=== PATIENT | female | born 1935 | race Caucasian/White ===

== ENCOUNTER 2020-01-20 12:09 | Outpatient (CLI) | payer MEDICARE, SELFPAY ==
[2020-01-20 12:42] LABS: Basophils % 0.4 %; Eosinophils # 0.3 10^3/uL (0.0-0.8); Hematocrit 44.9 % (37.0-47.0); Hemoglobin 13.4 g/dL (11.5-15.3); Lymphocytes # 1.3 10^3/uL (0.8-4.8); Mean Corpuscular HGB Conc 29.8 g/dL (30.0-36.0); Mean Corpuscular Hemoglobin 27.6 pg (28.0-34.0); Mean Corpuscular Volume 92.4 fL (81-99); Mean Platelet Volume 9.9 fL (7.4-10.4); Monocytes # 0.6 10^3/uL (0.2-0.9); Monocytes % 6.4 %; Neutrophils # 6.7 10^3/uL (1.8-7.7); Neutrophils % 74.8 %; Nucleated Red Blood Cells % 0 %; Platelet Count 302 10^3/cmm (130-400); Red Blood Count 4.86 10^6/uL (4.1-5.3); Red Cell Distribution Width 14.4 % (12.1-15.1); White Blood Count 8.9 10^3/uL (4.0-10.0)
[2020-01-20 13:02] LABS: Alanine Aminotransferase 8 U/L (0-33); Albumin Level 4.3 g/dL (3.5-5.2); Alkaline Phosphatase 123 IU/L (35-105); Anion Gap 11.8 (5-19); Aspartate Amino Transferase 13 U/L (0-32); Blood Urea Nitrogen 20 mg/dL (8-23); Calcium 9.4 mg/dL (8.5-10.5); Carbon Dioxide 30 mmol/L (22-29); Chloride 103 mmol/L (98-107); Globulin 2.9 g/dL (1.3-4.6); Glucose 103 mg/dL (65-115); Osmolality Calculated 289 mOsm/kg (285-295); Potassium 3.8 mmol/L (3.5-5.1); Sodium 141 mmol/L (136-145); Total Bilirubin 0.8 mg/dL (0.15-1.2); Total Protein 7.2 g/dL (6.6-8.7)
--- NOTE | 2020-01-24 13:43 | ONC FU_ITS ---
Dr. Leblanc Patient Follow-Up Note Patient: Brooklynn Veronica Unit #: [id number]: 1935 Dicatated By: Roger Leblanc M.D.Date of Visit:Jan 20, 2020 Onc Med Follow-up/Prog Note Chief Complaint: Anal canal cancer. 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 She had been seen by Dr. Nestor gong because she was having difficulty with her bowel movements. At the time, it felt to her as if there was some blockage. She had not been aware of any bleeding or other associated GI symptoms, but she did have some weight loss, in the range of 7-10 pounds. She was evaluated with colonoscopy on 06/15/2016. It showed a semi-pedunculated polyp versus mass in the rectum, estimated size 7 mm x 10 mm, just distal to the anal verge. Biopsy showed poorly differentiated squamous cell carcinoma. She was seen by Dr. Emiliano Das on 06/29/2016. On his exam he noted a palpable tumor in the right lateral position in the anal canal measuring about a centimeter. It did appear ulcerated, but not fixed. He then referred her here for staging evaluation and possible chemoradiation. PET/CT on 07/15/2016 showed marked increased metabolic activity associated with a mass in the anal canal, consistent with the primary tumor. There was no evidence for local or distant metastasis. She was treated with chemoradiation utilizing the mitomycin-C/5-FU regimen for chemosensitization. She received her day 1 chemotherapy on 07/26/2016. She tolerated it well, and she was able to complete her day 29 treatment on 08/22/2016. She completed radiation on 09/06/2016 to a total dose of 5580 cGy. She had her port removed on 11/04/2016. Anoscopy at that time showed no residual tumor within the anal canal. Restaging PET/CT on 12/30/2016 showed significant decrease in size and hypermetabolism of mass within the anal canal with max SUV 2.6, previously 24.1. No hypermetabolic lymph nodes were seen within the neck, chest, abdomen, or pelvis. There were scattered areas of probable scarring throughout the bilateral lungs, which appear more prominent than on previous examination, many of which had associated mild hypermetabolism. She was then followed on observation/expectant management. She is known to have a prolapsed bladder, and she also has underlying COPD. She has no other medical illnesses. She had smoked 1/2 pack of cigarettes daily for 30 years, but she quit smoking more than 5 years ago. INTERIM HISTORY: Surveillance CT scans of the chest, abdomen, and pelvis on 07/16/2018 showed stable bilateral pulmonary parenchymal nodules compared to prior study from 2013. There was stable appearance of the anal region compared to the PET/CT from December 2016. There was no evidence of disease progression. Repeat CT scans on 07/18/2019 showed clearing of previously noted right lower lobe pleural based density with unchanged medial left lower lobe pulmonary nodule. Tree-in-bud infiltrative changes were also noted to have improved. There was no evidence of metastatic disease in the chest, abdomen, or pelvis. She continued on observation/expectant management. She is seen for a scheduled visit. She has been feeling okay. She says her energy is not the greatest. She is doing light work. ECOG score is 1. She has good appetite, but she has lost weight. She has not had fever. She does have some sweating at night. She has shortness of breath, but her breathing has been pretty good with regular use of her inhalers. She has cough productive of clear sputum. She has not been having chest pain. However, she has occasional episodes of fast heart rate, significant enough that she feels like she is going to pass out. She is having them about once a month. She has no GI/ complaints other than some constipation, which she manages adequately with MiraLAX. She has been having pain in her hip, that is better. She has no other joint or bone pain. She does not complain of headache. She has no focal neurologic symptoms. Medications: Advair Diskus 2 (500-50 mcg/dose) Aerosol Powder, Breath Activated Inhalation daily PRN, Advil 1 (200 mg) Capsule Oral daily PRN, Stool Softener Tablet Oral PRN Allergies: Sulfa Review of Systems: Constitutional - Her energy level is pretty good. She is able to do house work and take care of her horses. Appetite is good. Her weight is down about 8 pounds from her last visit. No fever or chills. She does have some hot flashes and night sweats. ECOG score is 1, ENMT - She has some sinus congestion/drainage. No mouth sores. No sore throat or difficulty swallowing, Hematologic/Lymphatic - No abnormal bruising or bleeding, Respiratory - She has some shortness of breath but she manages it adequately with her inhalers. She has cough productive of clear sputum. No pleuritic pain or hemoptysis, Cardiovascular - No angina pain. No palpitations. She is having episodes of tachycardia, Gastrointestinal - No nausea or vomiting. No heartburn or acid reflux. No diarrhea. She uses Miralax to manage constipation. No blood in the stool or black stools, Genitourinary (F) - No dysuria or hematuria. No urinary frequency. No urgency or incontinence, Musculoskeletal - Her hips hurt occasionally. She has no other joint or bone pain, Integumentary - No skin complications, Neurologic - No headache or dizziness. No numbness/paresthesias or other focal neurologic symptoms, Psychiatric - No anxiety or depression. No insomnia. Vital Signs: Performed on Jan 20, 2020 14:13 Height - 61.50 in Weight - 92.6 lbs (LOW) BSA - 1.37 sq.m BMI - 17.21 (LOW) Temperature - 97.8 F (LOW) Pulse - 113 /min (HIGH) Respiration - 18 /min BP - 116/72 mm(hg) O2 Sat - 94 % (LOW) Pain - 0 Physical Examination: Constitutional - She looks pretty good generally, Eyes - Sclerae nonicteric. Conjunctivae clear, ENMT - No lesions noted in the oral cavity, Hematologic/Lymphatic - No cervical, clavicular, or axillary adenopathy, Respiratory - Lungs are clear with diminished air movement bilaterally, Cardiovascular - Heart rhythm is regular. There is no murmur, gallop, or rub noted, Abdomen - Soft. Liver and spleen are not enlarged. There is no abdominal mass or ascites noted and there is no inguinal adenopathy, Extremities - No edema, Neurologic - No focal neurologic deficits noted. Lab/Imaging: Test performed on Jan 20, 2020 12:20 Sodium 141 mmol/L Potassium 3.8 mmol/L Chloride 103 mmol/L CO2 30 mmol/L Anion Gap 11.8 BUN 20 mg/dL Creatinine 0.9 mg/dL Cr Clearance (Est) 32.8500 mL/min Glucose 103 mg/dL Calcium 9.4 mg/dL Protein, Total 7.2 g/dL Albumin 4.3 g/dL Globulin 2.9 g/dL Bilirubin, Total 0.8 mg/dL ALT (SGPT) 8 U/L AST (SGOT) 13 U/L Alkaline Phosphatase 123 IU/L WBC 8.9 10 3/uL RBC 4.86 10 6/uL HGB 13.4 g/dL HCT 44.9 % MCV 92.4 fL MCH 27.6 pg MCHC 29.8 g/dL RDW 14.4 % Platelet Count 302 10 3/cmm MPV 9.9 fL Neutrophils 6.7 10 3/uL Lymphocytes 1.3 10 3/uL Monocytes 0.6 10 3/uL Eosinophils 0.3 10 3/uL Basophils 0.0 10 3/uL Neutrophil % 74.8 % Lymphocyte % 15.0 % Monocyte % 6.4 % Eosinophil % 3.0 % Basophils % 0.4 % Impression: 1. Patient with squamous cell carcinoma of the anal canal. By clinical evaluation she appeared to have stage I disease (T1, N0, M0). 2. She underwent chemoradiation utilizing mitomycin-C/5-FU for chemosensitization. She tolerated the chemotherapy well. She completed radiation on 09/06/2016 to a total dose of 5500 cGy. She appears to have a very good response by restaging PET/CT and by follow-up anoscopy. 3. She has history of prolapsed bladder. 4. She has significant COPD, which appears to be disproportionate to her smoking history. She has been followed on observation/expectant management following completion of the chemoradiation. Initially she was having problems related to her underlying COPD, but her symptoms did improve with Spiriva. Recently she has been having episodes of tachycardia with associated lightheadedness/near syncope. The cause is uncertain, but thus far they have been very infrequent. She is otherwise been doing well clinically. Thus far there has been no evidence of recurrence of the anal canal cancer. Plan: She remains on observation/expectant management for the anal canal cancer. I will check with cardiac services about the possibility of getting her set up with a 30-day event monitor, if that is still available. She will have further cardiac evaluation as indicated. I will tentatively plan a follow-up visit in 6 months. Signed By: Roger Leblanc M.D. <<Signature on File>>
== END 2020-01-20 12:10 | disposition home or self-care (01) ==
LOC: ONCMED 12:12
PROVIDERS: Family Provider Electrodiagnostic Medicine; PCP Electrodiagnostic Medicine; Visit Provider Internal Medicine Medical Oncology
DX: Z08 Encounter for follow-up examination after completed treatment for malignant neoplasm (principal); Z85.048 Personal history of other malignant neoplasm of rectum, rectosigmoid junction, and anus; J44.9 Chronic obstructive pulmonary disease, unspecified; N81.10 Cystocele, unspecified; R00.0 Tachycardia, unspecified; Z79.51 Long term (current) use of inhaled steroids; Z87.891 Personal history of nicotine dependence; Z92.21 Personal history of antineoplastic chemotherapy; Z92.3 Personal history of irradiation
CPT/HCPCS: 80053; 85025; 99214

== ENCOUNTER 2020-07-27 11:14 | Outpatient (CLI) | payer MEDICARE, SELFPAY ==
[2020-07-27 11:56] LABS: Basophils % 0.6 %; Eosinophils # 0.2 10^3/uL (0.0-0.8); Eosinophils % 3.5 %; Hematocrit 44.7 % (37.0-47.0); Hemoglobin 13.9 g/dL (11.5-15.3); Lymphocytes # 1.1 10^3/uL (0.8-4.8); Lymphocytes % 16.7 %; Mean Corpuscular HGB Conc 31.1 g/dL (30.0-36.0); Mean Corpuscular Hemoglobin 29.6 pg (28.0-34.0); Mean Corpuscular Volume 95.3 fL (81-99); Mean Platelet Volume 10.3 fL (7.4-10.4); Monocytes # 0.4 10^3/uL (0.2-0.9); Monocytes % 6.1 %; Neutrophils # 4.81 10^3/uL (1.8-7.7); Neutrophils % 72.9 %; Nucleated Red Blood Cells % 0 %; Platelet Count 217 10^3/cmm (130-400); Red Blood Count 4.69 10^6/uL (4.1-5.3); Red Cell Distribution Width 13.1 % (12.1-15.1); White Blood Count 6.6 10^3/uL (4.0-10.0)
[2020-07-27 12:30] LABS: Alanine Aminotransferase 8 U/L (0-33); Albumin Level 4.2 g/dL (3.5-5.2); Alkaline Phosphatase 143 IU/L (35-105); Aspartate Amino Transferase 14 U/L (0-32); Blood Urea Nitrogen 22 mg/dL (8-23); Calcium 9.1 mg/dL (8.5-10.5); Carbon Dioxide 26 mmol/L (22-29); Chloride 104 mmol/L (98-107); Glucose 96 mg/dL (65-115); Osmolality Calculated 291 mOsm/kg (285-295); Sodium 139 mmol/L (136-145); Total Bilirubin 0.7 mg/dL (0.15-1.2); Total Protein 7.2 g/dL (6.6-8.7)
--- NOTE | 2020-07-31 06:41 | ONC FU_ITS ---
Dr. Leblanc Patient Follow-Up Note Patient: Brooklynn Veronica Unit #: [id number]: 1935 Dicatated By: Roger Leblanc M.D.Date of Visit:Jul 27, 2020 Onc Med Follow-up/Prog Note Chief Complaint: Anal canal cancer. 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 She had been seen by Dr. Nestor gong because she was having difficulty with her bowel movements. At the time, it felt to her as if there was some blockage. She had not been aware of any bleeding or other associated GI symptoms, but she did have some weight loss, in the range of 7-10 pounds. She was evaluated with colonoscopy on 06/15/2016. It showed a semi-pedunculated polyp versus mass in the rectum, estimated size 7 mm x 10 mm, just distal to the anal verge. Biopsy showed poorly differentiated squamous cell carcinoma. She was seen by Dr. Emiliano Das on 06/29/2016. On his exam he noted a palpable tumor in the right lateral position in the anal canal measuring about a centimeter. It did appear ulcerated, but not fixed. He then referred her here for staging evaluation and possible chemoradiation. PET/CT on 07/15/2016 showed marked increased metabolic activity associated with a mass in the anal canal, consistent with the primary tumor. There was no evidence for local or distant metastasis. She was treated with chemoradiation utilizing the mitomycin-C/5-FU regimen for chemosensitization. She received her day 1 chemotherapy on 07/26/2016. She tolerated it well, and she was able to complete her day 29 treatment on 08/22/2016. She completed radiation on 09/06/2016 to a total dose of 5580 cGy. She had her port removed on 11/04/2016. Anoscopy at that time showed no residual tumor within the anal canal. Restaging PET/CT on 12/30/2016 showed significant decrease in size and hypermetabolism of mass within the anal canal with max SUV 2.6, previously 24.1. No hypermetabolic lymph nodes were seen within the neck, chest, abdomen, or pelvis. There were scattered areas of probable scarring throughout the bilateral lungs, which appear more prominent than on previous examination, many of which had associated mild hypermetabolism. She was then followed on observation/expectant management. She is known to have a prolapsed bladder, and she also has underlying COPD. She has no other medical illnesses. She had smoked 1/2 pack of cigarettes daily for 30 years, but she quit smoking more than 5 years ago. INTERIM HISTORY: Surveillance CT scans of the chest, abdomen, and pelvis on 07/16/2018 showed stable bilateral pulmonary parenchymal nodules compared to prior study from 2013. There was stable appearance of the anal region compared to the PET/CT from December 2016. There was no evidence of disease progression. Repeat CT scans on 07/18/2019 showed clearing of previously noted right lower lobe pleural based density with unchanged medial left lower lobe pulmonary nodule. Tree-in-bud infiltrative changes were also noted to have improved. There was no evidence of metastatic disease in the chest, abdomen, or pelvis. She continued on observation/expectant management. She is seen for a scheduled visit. She has been feeling pretty good generally. Her energy has been slowing down, but she is still able to do light work. Her ECOG score is 1. She has good appetite. Her weight is up about 5 pounds. She has no fever, night sweats, or hot flashes. She has shortness of breath, but her breathing has been okay with her inhalers. She has cough productive of clear sputum. She does not complain of chest pain. She has no GI/ complaints other than constipation, which she manages adequately with Miralax. She has chronic pain in her right hip. She has no other joint or bone pain. She has no focal neurologic symptoms. Medications: Advair Diskus 2 (500-50 mcg/dose) Aerosol Powder, Breath Activated Inhalation daily PRN, Advil 1 (200 mg) Capsule Oral daily PRN, Stool Softener Tablet Oral PRN Allergies: Sulfa Review of Systems: Constitutional - Her energy has been slowing down. She is doing light work. She has good appetite. Her weight is up 5 pounds. She does not have fever, night sweats, or hot flashes. ECOG score is 1, ENMT - No sinus congestion/drainage. No mouth sores. No sore throat or difficulty swallowing, Hematologic/Lymphatic - She has easy bruising, Respiratory - She has shortness of breath, but her breathing has been okay with her inhalers . She has cough productive of clear sputum. No pleuritic pain or hemoptysis, Cardiovascular - No angina pain. No palpitations, Gastrointestinal - No nausea or vomiting. No heartburn or acid reflux. She has constipation. Bowel function has been adequate with Miralax. No blood in the stool or black stools, Genitourinary (F) - No dysuria or hematuria. No urinary frequency. No urgency or incontinence, Musculoskeletal - She has pain in her right hip, which is chronic. No other joint or bone pain, Integumentary - No skin rash, Neurologic - No headache. She occasionally has dizziness. No numbness or tingling. No other focal neurologic symptoms, Psychiatric - No anxiety or depression. No insomnia. Vital Signs: Performed on Jul 27, 2020 12:50 Height - 61.50 in Weight - 97.4 lbs (HIGH) BSA - 1.40 sq.m BMI - 18.11 Temperature - 97.9 F (LOW) Pulse - 95 /min Respiration - 16 /min BP - 100/61 mm(hg) O2 Sat - 95 % (LOW) Pain - 0 Physical Examination: Constitutional - She looks pretty good generally, Eyes - Sclerae nonicteric. Conjunctivae clear, ENMT - No lesions noted in the oral cavity, Hematologic/Lymphatic - No cervical, clavicular, or axillary adenopathy, Respiratory - Lungs are clear with diminished air movement bilaterally, Cardiovascular - Heart rhythm is regular. There is no murmur, gallop, or rub noted, Abdomen - Soft. Liver and spleen are not enlarged. There is no abdominal mass or ascites noted and there is no inguinal adenopathy, Extremities - No edema, Neurologic - No focal neurologic deficits noted. Lab/Imaging: Test performed on Jul 27, 2020 11:30 Sodium 139 mmol/L Potassium 4.0 mmol/L Chloride 104 mmol/L CO2 26 mmol/L Anion Gap 13.0 BUN 22 mg/dL Creatinine 1.2 mg/dL Cr Clearance (Est) 24.2000 mL/min Glucose 96 mg/dL Osmolality - Calculated 291 mOsm/kg Calcium 9.1 mg/dL Protein, Total 7.2 g/dL Albumin 4.2 g/dL Globulin 3.0 g/dL Bilirubin, Total 0.7 mg/dL ALT (SGPT) 8 U/L AST (SGOT) 14 U/L Alkaline Phosphatase 143 IU/L WBC 6.6 10 3/uL RBC 4.69 10 6/uL HGB 13.9 g/dL HCT 44.7 % MCV 95.3 fL MCH 29.6 pg MCHC 31.1 g/dL RDW 13.1 % Platelet Count 217 10 3/cmm MPV 10.3 fL Neutrophils 4.81 10 3/uL Lymphocytes 1.1 10 3/uL Monocytes 0.4 10 3/uL Eosinophils 0.2 10 3/uL Basophils 0.0 10 3/uL Neutrophil % 72.9 % Lymphocyte % 16.7 % Monocyte % 6.1 % Eosinophil % 3.5 % Basophils % 0.6 % NRBC % 0 % Impression: 1. Patient with squamous cell carcinoma of the anal canal. By clinical evaluation she appeared to have stage I disease (T1, N0, M0). 2. She underwent chemoradiation utilizing mitomycin-C/5-FU for chemosensitization. She tolerated the chemotherapy well. She completed radiation on 09/06/2016 to a total dose of 5500 cGy. She appears to have a very good response by restaging PET/CT and by follow-up anoscopy. 3. She has history of prolapsed bladder. 4. She has significant COPD, which appears to be disproportionate to her smoking history. She has been followed on observation/expectant management following completion of the chemoradiation. Initially she was having problems related to her underlying COPD, but her symptoms did improve with Spiriva. During subsequent follow-up her inhaler was changed to Advair, and since then she has been doing somewhat better. Her clinical status has otherwise remained stable with no evidence of recurrence of the anal canal cancer. Plan: She remains on observation/expectant management. I will just plan to see her again in 1 year. In the meantime, she also will continue her regular follow-up with Dr. Mead. Signed By: Roger Leblanc M.D. <<Signature on File>>
== END 2020-07-27 11:15 | disposition home or self-care (01) ==
LOC: ONCMED 11:18
PROVIDERS: PCP Electrodiagnostic Medicine; Visit Provider Internal Medicine Medical Oncology
DX: Z08 Encounter for follow-up examination after completed treatment for malignant neoplasm (principal); Z85.048 Personal history of other malignant neoplasm of rectum, rectosigmoid junction, and anus; J44.9 Chronic obstructive pulmonary disease, unspecified; Z92.3 Personal history of irradiation; Z92.21 Personal history of antineoplastic chemotherapy
CPT/HCPCS: 80053; 85025; G0463

== ENCOUNTER 2021-06-14 14:23 | Outpatient (CLI) | payer MEDICARE, SELFPAY ==
--- NOTE | 2021-06-14 14:58 | XR_ITS ---
WS: [id number] PROCEDURE: XR chest 2V* [id number] CLINICAL INFORMATION: ABNORMAL WEIGHT LOSS/SMOKER/COPD COMPARISON: Radiograph 2007, CT 2019 FINDINGS: Heart: Normal cardiac silhouette. Aortic calcification. Lungs: Advanced chronic emphysematous changes. No acute pulmonary infiltrates. No focal consolidation or pleural fluid. Fibrosis right upper lobe unchanged since 2008. A few calcified granulomas. Bones: Thoracic curve convex right. Mild thoracic kyphosis with chronic anterior wedging in the mid a nd upper thoracic spine. Osteopenia. XR/XR chest 2V* [id number] IMPRESSION: 1. Advanced chronic emphysematous changes. No acute pulmonary infiltrates. 2. Fibrosis in the lung apices and right upper lobe laterally unchanged. 3. A few calcified granulomas. 4. Osteopenia.
--- NOTE | 2021-06-14 14:58 | XRR_ITS ---
PROCEDURE INFORMATION: Exam: XR Abdomen Exam date and time: 06/14/2021 2:58 PM Age: 85 years old Clinical indication: Condition or disease; Other: Copd; Other: Abnormal weight loss; Additional info: Abnormal weight loss/copd/smoker TECHNIQUE: Imaging protocol: XR of the abdomen. Views: Frontal supine view of the abdomen. 1 View. COMPARISON: CT Chest/Abdomen/Pelvis w IV* 07/18/2019 11:50 AM FINDINGS: Gastrointestinal tract: Normal. No bowel dilation. Bones/joints: Severe joint space narrowing and productive arthritis features of the right hip joint. 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 XR/XR abdomen 1V* [id number] IMPRESSION: No acute abdominal findings.
== END 2021-06-14 14:24 | disposition home or self-care (01) ==
PROVIDERS: PCP Electrodiagnostic Medicine; Visit Provider Electrodiagnostic Medicine
DX: R63.4 Abnormal weight loss (principal); F17.210 Nicotine dependence, cigarettes, uncomplicated; J44.9 Chronic obstructive pulmonary disease, unspecified; M85.88 Other specified disorders of bone density and structure, other site; L92.9 Granulomatous disorder of the skin and subcutaneous tissue, unspecified
CPT/HCPCS: 71046; 74018

== ENCOUNTER 2021-07-26 08:43 | Outpatient (CLI) | payer MEDICARE, SELFPAY ==
[2021-07-26 09:53] LABS: Basophils % 0.2 %; Eosinophils # 0.3 10^3/uL (0.0-0.8); Eosinophils % 3.1 %; Hematocrit 41.4 % (37.0-47.0); Hemoglobin 13.1 g/dL (11.5-15.3); Lymphocytes % 11.3 %; Mean Corpuscular HGB Conc 31.6 g/dL (30.0-36.0); Mean Corpuscular Hemoglobin 29.2 pg (28.0-34.0); Mean Corpuscular Volume 92.4 fl (81-99); Mean Platelet Volume 10.8 fL (7.4-10.4); Monocytes # 0.7 10^3/uL (0.2-0.9); Monocytes % 7.4 %; Neutrophils # 6.97 10^3/uL (1.8-7.7); Neutrophils % 77.7 %; Nucleated Red Blood Cells % 0 %; Platelet Count 254 10^3/cmm (130-400); Red Blood Count 4.48 10^6/uL (4.1-5.3); Red Cell Distribution Width 12.7 % (12.1-15.1)
[2021-07-26 10:11] LABS: Alanine Aminotransferase < 5 U/L (0-33); Albumin Level 3.9 g/dL (3.5-5.2); Alkaline Phosphatase 131 IU/L (35-105); Anion Gap 13.7 (5-19); Aspartate Amino Transferase 8 U/L (0-32); Blood Urea Nitrogen 15 mg/dL (8-23); Carbon Dioxide 26 mmol/L (22-29); Chloride 98 mmol/L (98-107); Globulin 2.7 g/dL (1.3-4.6); Glucose 96 mg/dL (65-115); Osmolality Calculated 279 mOsm/kg (285-295); Potassium 3.7 mmol/L (3.5-5.1); Sodium 134 mmol/L (136-145); Total Bilirubin 1.5 mg/dL (0.15-1.2); Total Protein 6.6 g/dL (6.6-8.7)
== END 2021-07-26 08:44 | disposition home or self-care (01) ==
LOC: ONCMED 08:46
PROVIDERS: PCP Electrodiagnostic Medicine; Visit Provider Internal Medicine Medical Oncology
DX: C21.1 Malignant neoplasm of anal canal (principal)
CPT/HCPCS: 36415; 80053; 85025

== ENCOUNTER 2021-07-28 06:33 | Outpatient (CLI) | payer MEDICARE, SELFPAY ==
--- NOTE | 2021-07-31 13:14 | ONC FU_ITS ---
Dr. Leblanc Patient Follow-Up Note Patient: Brooklynn Veronica Unit #: [id number]: [id number] Dicatated By: Roger Leblanc M.D.Date of Visit:Jul 28, 2021 Onc Med Follow-up/Prog Note Chief Complaint: Anal canal cancer. 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 She had been seen by Dr. Nestor gong because she was having difficulty with her bowel movements. At the time, it felt to her as if there was some blockage. She had not been aware of any bleeding or other associated GI symptoms, but she did have some weight loss, in the range of 7-10 pounds. She was evaluated with colonoscopy on 06/15/2016. It showed a semi-pedunculated polyp versus mass in the rectum, estimated size 7 mm x 10 mm, just distal to the anal verge. Biopsy showed poorly differentiated squamous cell carcinoma. She was seen by Dr. Emiliano Das on 06/29/2016. On his exam he noted a palpable tumor in the right lateral position in the anal canal measuring about a centimeter. It did appear ulcerated, but not fixed. He then referred her here for staging evaluation and possible chemoradiation. PET/CT on 07/15/2016 showed marked increased metabolic activity associated with a mass in the anal canal, consistent with the primary tumor. There was no evidence for local or distant metastasis. She was treated with chemoradiation utilizing the mitomycin-C/5-FU regimen for chemosensitization. She received her day 1 chemotherapy on 07/26/2016. She tolerated it well, and she was able to complete her day 29 treatment on 08/22/2016. She completed radiation on 09/06/2016 to a total dose of 5580 cGy. She had her port removed on 11/04/2016. Anoscopy at that time showed no residual tumor within the anal canal. Restaging PET/CT on 12/30/2016 showed significant decrease in size and hypermetabolism of mass within the anal canal with max SUV 2.6, previously 24.1. No hypermetabolic lymph nodes were seen within the neck, chest, abdomen, or pelvis. There were scattered areas of probable scarring throughout the bilateral lungs, which appear more prominent than on previous examination, many of which had associated mild hypermetabolism. She was then followed on observation/expectant management. She is known to have a prolapsed bladder, and she also has underlying COPD. She has no other medical illnesses. She had smoked 1/2 pack of cigarettes daily for 30 years, but she quit smoking more than 5 years ago. INTERIM HISTORY: Surveillance CT scans of the chest, abdomen, and pelvis on 07/16/2018 showed stable bilateral pulmonary parenchymal nodules compared to prior study from 2013. There was stable appearance of the anal region compared to the PET/CT from December 2016. There was no evidence of disease progression. Repeat CT scans on 07/18/2019 showed clearing of previously noted right lower lobe pleural based density with unchanged medial left lower lobe pulmonary nodule. Tree-in-bud infiltrative changes were also noted to have improved. There was no evidence of metastatic disease in the chest, abdomen, or pelvis. She continued on observation/expectant management. She is seen for a scheduled visit. She has not been feeling as good lately, mainly due to a terrible cold which started a couple of days ago. With that she has had cough productive of yellow sputum and increased shortness of breath. She also had some chest pain this morning. She has had some decline in activity tolerance, though she still does light work. ECOG score is 1. Her appetite has been okay, and she does eat. However, she has continued to lose weight. By our scale she is down 5 pounds compared to last year. She has not had fever or night sweats. She says she feels cold all the time. She recently had some nausea, but just for 1 night. Bowel function remains adequate with MiraLAX. She has not had blood in the stool. She has no complaints. She has pain in her right hip, which is not new. She has had slight headache. She sometimes has dizziness. She has no numbness/paresthesia or other focal neurologic symptoms. Medications: Advair Diskus 2 (500-50 mcg/dose) Aerosol Powder, Breath Activated Inhalation daily PRN, Advil 1 (200 mg) Capsule Oral daily PRN, Stool Softener Tablet Oral PRN Allergies: Sulfa Vital Signs: Performed on Jul 28, 2021 14:30 Height - 61.50 in Weight - 92.4 lbs (LOW) BSA - 1.37 sq.m BMI - 17.18 (LOW) Temperature - 98.5 F Pulse - 98 /min Respiration - 18 /min BP - 127/78 mm(hg) O2 Sat - 92 % (LOW) Pain - 0 Fatigue - 6 Physical Examination: Constitutional - She appears somewhat frail generally, Eyes - Sclerae nonicteric. Conjunctivae clear, ENMT - No lesions noted in the oral cavity, Hematologic/Lymphatic - No cervical, clavicular, or axillary adenopathy, Respiratory - Lungs are clear with diminished air movement bilaterally, Cardiovascular - Heart rhythm is regular. There is no murmur, gallop, or rub noted, Abdomen - Soft. Liver and spleen are not enlarged. There is no abdominal mass or ascites noted and there is no inguinal adenopathy, Extremities - No edema, Neurologic - No focal neurologic deficits noted. Lab/Imaging: Test performed on Jul 26, 2021 08:59 Sodium 134 mmol/L Potassium 3.7 mmol/L Chloride 98 mmol/L CO2 26 mmol/L Anion Gap 13.7 BUN 15 mg/dL Creatinine 1.0 mg/dL Cr Clearance (Est) 28.5100 mL/min Glucose 96 mg/dL Osmolality - Calculated 279 mOsm/kg Calcium 9.0 mg/dL Protein, Total 6.6 g/dL Albumin 3.9 g/dL Globulin 2.7 g/dL Bilirubin, Total 1.5 mg/dL ALT (SGPT) < 5 U/L AST (SGOT) 8 U/L Alkaline Phosphatase 131 IU/L WBC 9.0 10 3/uL RBC 4.48 10 6/uL HGB 13.1 g/dL HCT 41.4 % MCV 92.4 fl MCH 29.2 pg MCHC 31.6 g/dL RDW 12.7 % Platelet Count 254 10 3/cmm MPV 10.8 fL Neutrophils 6.97 10 3/uL Lymphocytes 1.0 10 3/uL Monocytes 0.7 10 3/uL Eosinophils 0.3 10 3/uL Basophils 0.0 10 3/uL Neutrophil % 77.7 % Lymphocyte % 11.3 % Monocyte % 7.4 % Eosinophil % 3.1 % Basophils % 0.2 % NRBC % 0 % Problem List: 1. Patient with squamous cell carcinoma of the anal canal. By clinical evaluation she appeared to have stage I disease (T1, N0, M0) at initial diagnosis in June 2016. 2. She has significant COPD. 3. She has history of prolapsed bladder. Problems Addressed with this Encounter and Plan: Patient with squamous cell carcinoma of the anal canal. By clinical evaluation she appeared to have stage I disease (T1, N0, M0). She underwent chemoradiation utilizing mitomycin-C/5-FU for chemosensitization. She tolerated the chemotherapy well. She completed radiation on 09/06/2016 to a total dose of 5500 cGy. She had a very good response by restaging PET/CT and by follow-up anoscopy. She has been followed on observation/expectant management following completion of the chemoradiation. During follow-up she has had issues related to her underlying COPD, but thus far there has been no evidence of recurrence of the anal canal cancer. She has now close to 5 years following completion of treatment. My only concern is that she has had some continued unintentional weight loss, and as a precaution I am going to schedule her for surveillance CT scans. If those are negative, she will continue her regular follow-up with Dr. Baez, and I will plan to just see her again as needed. Signed By: Roger Leblanc M.D. <<Signature on File>>
== END 2021-07-28 06:34 | disposition home or self-care (01) ==
LOC: ONCMED 06:34
PROVIDERS: PCP Electrodiagnostic Medicine; Visit Provider Internal Medicine Medical Oncology
DX: Z08 Encounter for follow-up examination after completed treatment for malignant neoplasm (principal); Z85.048 Personal history of other malignant neoplasm of rectum, rectosigmoid junction, and anus; J44.9 Chronic obstructive pulmonary disease, unspecified; N81.10 Cystocele, unspecified; Z79.899 Other long term (current) drug therapy; Z92.3 Personal history of irradiation
CPT/HCPCS: 99214

== ENCOUNTER 2021-08-03 09:54 | Outpatient (CLI) | payer MEDICARE, SELFPAY ==
--- NOTE | 2021-08-03 10:05 | CT_ITS ---
WS: [id number] CT CHEST, ABDOMEN, AND PELVIS TECHNIQUE: Contrast-enhanced CT of the chest, abdomen, and pelvis with coronal and sagittal reformatt ed images. CLINICAL INFORMATION: ANAL CANCER COMPARISON: CT and DLP: 899.[address] scans at [facility] use at least one of these dose optimization techniques: automated e xposure control; mA and/or kV adjustment per patient size (includes targeted exams where dose is matc hed to clinical indication); or iterative reconstruction. CT CHEST: Moderate chronic emphysematous changes. No focal pneumonia or pleural fluid. Scattered areas of fibro sis with subpleural reticular opacities and tree-in-bud micronodular infiltrates. This is similar in appearance to the prior examinations. Fibrosis in the lung apices. Perihilar bronchiectasis. Areas of subpleural nodularity are similar in appearance. A few calcified granulomas. Progressed tree-in-bud infiltrates in the right middle lobe. No evidence of metastatic disease in the chest. Normal caliber thoracic aorta. Proximal main pulmonary arteries are normal. No mediastinal or hilar l ymphadenopathy. No axillary lymphadenopathy. Mild thoracic kyphosis is unchanged. CT ABDOMEN AND PELVIS: History of rectal cancer with treatment-related changes involving the rectum. No evidence of progressed or recurrent neoplasm. No perirectal lymphadenopathy. Sigmoid diverticulosi s. No free fluid in the pelvis. No pelvic or inguinal lymphadenopathy. Diffuse fatty infiltration of the liver. Normal portal vein and splenic vein. Small hepatic cyst. Nor mal gallbladder. Normal spleen. Normal renal parenchymal enhancement. Small bilateral renal cysts. No rmal GE junction. Normal caliber abdominal aorta. Aortic calcification. No abdominal lymphadenopathy. Grade 1 anterolisthesis L5 on S1. Stable sclerotic foci involving the right hip and acetabulum estuardo tible with Paget's disease. Prior hysterectomy CT/CT chest abd pel w con* IMPRESSION: 1. No evidence of progressed rectal neoplasm. 2. No adenopathy in the chest abdomen or pelvis. 3. Micronodular tree in bud infiltrates in the right middle lobe have progress ed compared to previous likely infectious or inflammatory. Subpleural opacities and fibrosis in both lungs similar to previous. 4. Diffuse fatty infiltration liver. 5. No hydronephrosis in either kidney. 6. Stable sclerotic changes likely Paget's disease involving the right hip.
[2021-08-03] MEDS: iohexol 300 mg/mL 50 mL Btl PO (11:07)
[2021-08-03] MEDS: iodixanol 320 mg/mL 100mL Btl IV (11:22)
== END 2021-08-03 09:55 | disposition home or self-care (01) ==
PROVIDERS: PCP Electrodiagnostic Medicine; Visit Provider Internal Medicine Medical Oncology
DX: C21.1 Malignant neoplasm of anal canal (principal); R11.2 Nausea with vomiting, unspecified
CPT/HCPCS: 71260; 74177; Q9967

== ENCOUNTER → 2022-02-09 09:03 | Outpatient (BNVA) | payer MEDICARE, SELFPAY | PROVIDERS: PCP Electrodiagnostic Medicine; Visit Provider Internal Medicine Critical Care Medicine | DX: J44.9 Chronic obstructive pulmonary disease, unspecified (principal); C21.0 Malignant neoplasm of anus, unspecified; Z87.891 Personal history of nicotine dependence | CPT/HCPCS: 99214 ==

== ENCOUNTER 2022-07-19 08:42 | Outpatient (CLI) | payer MEDICARE, SELFPAY ==
--- NOTE | 2022-07-19 08:55 | XRR_ITS ---
PROCEDURE INFORMATION: Exam: XR Chest Exam date and time: 07/19/2022 8:57 AM Age: 86 years old Clinical indication: Dyspnea; Prior surgery; Surgery type: Port; Patient HX: HX of anal/colon cancer TECHNIQUE: Imaging protocol: Radiologic exam of the chest. Views: 2 views. COMPARISON: CT chest abd pel w con* 08/03/2021 11:21 AM FINDINGS: Lungs: Peripheral pulmonary scarring again noted most predominant in the upper outer right chest and apical region. No significant airspace consolidation concerning for pneumonia. Calcified pulmonary granulomas noted. Pleural spaces: No pneumothorax. No pleural effusion. Heart/Mediastinum: The cardiomediastinal silhouette is within normal limits. Bones/joints: Mildly prominent calcifications in the costochondral cartilage again noted. XR/XR chest 2V* [id number] IMPRESSION: No acute cardiopulmonary abnormality identified.
== END 2022-07-19 08:43 | disposition home or self-care (01) ==
PROVIDERS: PCP Family Medicine; Visit Provider Family Medicine
DX: J40 Bronchitis, not specified as acute or chronic (principal)
CPT/HCPCS: 71046

== ENCOUNTER → 2022-08-11 08:10 | Outpatient (BNVA) | payer MEDICARE, SELFPAY | PROVIDERS: PCP Family Medicine; Visit Provider Internal Medicine Critical Care Medicine | DX: J44.1 Chronic obstructive pulmonary disease with (acute) exacerbation (principal); Z87.891 Personal history of nicotine dependence; Z85.048 Personal history of other malignant neoplasm of rectum, rectosigmoid junction, and anus | CPT/HCPCS: 99214 ==

== ENCOUNTER → 2022-11-23 10:33 | Outpatient (BNVA) | payer MEDICARE, SELFPAY | PROVIDERS: PCP Family Medicine; Visit Provider Family Medicine | DX: R63.4 Abnormal weight loss (principal); C21.0 Malignant neoplasm of anus, unspecified | CPT/HCPCS: 80053; 84443; 85025; 86140 ==

== ENCOUNTER 2022-12-29 13:33 | Outpatient (CLI) | payer MEDICARE, SELFPAY ==
[2022-12-29] MEDS: iohexol 350 mg/mL 500 mL Btl (per mL) IV (13:47)
[2022-12-29] MEDS: iohexol 350 mg/mL 500 mL Btl (per mL) PO (13:48)
--- NOTE | 2022-12-29 15:00 | CTR_ITS ---
PROCEDURE INFORMATION: Exam: CT Chest With Contrast; Diagnostic Exam date and time: 12/29/2022 2:59 PM Age: 87 years old Clinical indication: Other: Unexplained wt loss; Prior surgery; Surgery type: Colonoscopy, hysterectomy, lung biopsy; Patient HX: HX of anal cancer; Additional info: Unexplained wt loss, needs adam TECHNIQUE: Imaging protocol: Diagnostic computed tomography of the chest with contrast. Radiation optimization: All CT scans at this facility use at least one of these dose optimization techniques: automated exposure control; mA and/or kV adjustment per patient size (includes targeted exams where dose is matched to clinical indication); or iterative reconstruction. Contrast material: OMNI 350; Contrast volume: 80 ml; Contrast route: INTRAVENOUS (IV); REPORTING DATA: Count of CT and Cardiac NM exams in prior 12 months: This patient has received 0 known CTs and 0 known cardiac nuclear medicine studies in the 12 months prior to the current study. COMPARISON: CT chest abdpel w/*[id number] 08/03/2021 11:21 AM RADIATION DOSE METRICS: Total DLP (mGy-cm): 422.3 FINDINGS: Lungs: There are scattered circumscribed pulmonary nodules of varying sizes measuring up tor 9 mm many of which have developed from previous exam and probably metastatic in nature. There are smaller nodules some which are calcified that are stable in representing chronic granulomatous process. There is also scattered bronchiectasis, bronchiolitis and minor atelectatic changes relatively stable consistent with ongoing airway disease raises possibility of MAC infection. There is also superimposed emphysematous changes both lung baum, stable. There are chronic granulomatous calcifications within the mediastinum both hilum, stable. No significant lymphadenopathy. Pleural spaces: Unremarkable. No pneumothorax. No pleural effusion. Heart: Heart is not significantly enlarged. There are mild calcifications of the coronary artery. No significant pericardial effusion. Lymph nodes: See Lungs finding. Vasculature: Unremarkable. No aortic aneurysm. Bones/joints: No suspicious bone lesions appreciated. No acute bony abnormalities. Soft tissues: Unremarkable. PROCEDURE INFORMATION: Exam: CT Abdomen And Pelvis With Contrast Exam date and time: 12/29/2022 2:59 PM Age: 87 years old Clinical indication: Other: Unexplained wt loss; Prior surgery; Surgery type: Colonoscopy, hysterectomy, lung biopsy; Patient HX: HX of anal cancer; Additional info: Unexplained wt loss, needs adam TECHNIQUE: Imaging protocol: Computed tomography of the abdomen and pelvis with contrast. Radiation optimization: All CT scans at this facility use at least one of these dose optimization techniques: automated exposure control; mA and/or kV adjustment per patient size (includes targeted exams where dose is matched to clinical indication); or iterative reconstruction. Contrast material: OMNI 350; Contrast volume: 80 ml; Contrast route: INTRAVENOUS (IV); REPORTING DATA: Count of CT and Cardiac NM exams in prior 12 months: This patient has received 0 known CTs and 0 known cardiac nuclear medicine studies in the 12 months prior to the current study. COMPARISON: CT chest abdpel w/*[id number] 08/03/2021 11:21 AM RADIATION DOSE METRICS: Total DLP (mGy-cm): 422.3 FINDINGS: Lungs: Lung bases are clear. Liver: There are 2 tiny liver cysts, unchanged otherwise liver is unremarkable. Gallbladder and bile ducts: Normal. No calcified stones. No ductal dilation. 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 Possibility of an enhancing pancreatic tumor such is a neural endocrine tumor is also a consideration. Remainder of the pancreas is unremarkable. Main pancreatic duct is not dilated. Spleen: Normal. No splenomegaly. Adrenal glands: Nonenlarged. Kidneys and ureters: There are stable benign-appearing renal cortical cysts otherwise kidneys are unremarkable. Stomach and bowel: There is a moderate degree of stool throughout the large bowel most pronounced within the rectum which is somewhat distended suggesting fecal impaction. Appendix: No evidence of appendicitis. Intraperitoneal space: Unremarkable. No free air. No significant fluid collection. Vasculature: Scattered atherosclerotic changes of the abdominal aorta and iliac vessels. No aortic aneurysm. There is nonocclusive thrombus within the right common iliac vein that has developed and a 2nd more indistinct filling defect within the right femoral vein at the level of the right hip also suspicious for thrombus.. Lymph nodes: Unremarkable. No enlarged lymph nodes. Urinary bladder: Unremarkable as visualized. Reproductive: Unremarkable as visualized. Bones/joints: There are marked pagetoid changes of the right hip with advanced degenerative changes of the right hip joint that have progressed from previous exam. There is interval development of multiple heterogeneously enhancing soft tissue masses anterior to the right hip joint measuring up to 3 cm with some adjacent scalloping/erosion of the anterior cortex of the femoral neck. Changes raises concern for possible sarcomatous degeneration. Soft tissues: There is a paucity of body fat limiting assessment for fascial planes. CT/CT chest abdpel w/*[id number] IMPRESSION: 1. Interval development of multiple pulmonary nodules measuring up to 9 mm presumed metastatic in nature. 2. Superimposed chronic granulomatous changes and ongoing scattered airway disease as discussed above. 3. COPD with scattered emphysematous changes, stable. IMPRESSION: 1. Advanced Paget's disease right hip with interval changes along the anterior cortex and adjacent soft tissue masses anterior to the right hip joint concerning for sarcomatous degeneration. 2. Findings consistent with venous thrombus involving the right common iliac vein and portion of the right femoral vein. 3. Stable enhancing lesion within the pancreas possibly vascular nature with a neuroendocrine tumor to be excluded. 4. Large amount of stool throughout the colon with some degree of fecal impaction. 5. Stable benign-appearing liver and renal cysts.
== END 2022-12-29 13:34 | disposition home or self-care (01) ==
PROVIDERS: PCP Family Medicine; Visit Provider Family Medicine
DX: R63.4 Abnormal weight loss (principal); C21.0 Malignant neoplasm of anus, unspecified; M88.88 Osteitis deformans of other bones; N28.1 Cyst of kidney, acquired; K76.89 Other specified diseases of liver
CPT/HCPCS: 71260; 74177; Q9967

== ENCOUNTER → 2023-01-09 14:35 | Outpatient (BNVA) | payer MEDICARE, SELFPAY | PROVIDERS: PCP Family Medicine; Visit Provider Internal Medicine Pulmonary Disease | DX: J44.9 Chronic obstructive pulmonary disease, unspecified (principal); R91.8 Other nonspecific abnormal finding of lung field; Z87.891 Personal history of nicotine dependence; R63.4 Abnormal weight loss; Z68.1 Body mass index [BMI] 19.9 or less, adult; Z85.048 Personal history of other malignant neoplasm of rectum, rectosigmoid junction, and anus | CPT/HCPCS: 99214 ==

== ENCOUNTER 2023-01-14 05:52 | Outpatient (CLI) | payer MEDICARE, SELFPAY ==
--- NOTE | 2023-01-14 10:30 | PETR_ITS ---
PROCEDURE INFORMATION: Exam: PET/CT Skull Base to Mid-thigh Exam date and time: 01/14/2023 10:47 AM Age: 87 years old Clinical indication: Abnormal findings; Interval development of multiple pulmonary nodules measuring up to 9 mm presumed metastatic in nature. 2. Superimposed chronic granulomatous changes and ongoing scattered airway disease as; Prior surgery; Surgery type: Colonoscopy, hysterectomy, lung biopsy; Patient HX: HX of colon cancer 6 years ago; Additional info: Lung nodules LABS AND CLINICAL REPORTS: Glucose: 132 mg/dl Treatment strategy for malignancy (PET staging): Initial Staging (PI) TECHNIQUE: Imaging protocol: Following at least four-hour fasting and following the injection of F-18-FDG, low dose CT images were obtained. Then, PET images were obtained. Attenuation corrected images were constructed using the CT scan. Fused images of PET and CT were reviewed. The standardized uptake values (SUV) reported below are maximum values within a region of interest, expressed in gm/ml. Exam includes orbital meatal line to mid-thigh. Radiopharmaceutical: 14.57 mCi F-18 FDG (Fluorodeoxyglucose), IV. Time of imaging post radiopharmaceutical administration: 1 hour Injection site: Right antecubital COMPARISON: CT chest abdpel w/*[id number] 12/29/2022 2:59 PM, PET-CT 12/30/2016 FINDINGS: Limitations: Motion artifact. Brain: Visualized brain has normal physiologic uptake. Paranasal sinuses: Non radiotracer avid lobulated mucosal thickening of the left maxillary sinus likely represents a benign mucous retention cyst or polyp. Pharynx: No abnormal uptake. Larynx: No abnormal uptake. Lungs, pleura and trachea: Mild non radiotracer avid biapical pleural scarring is noted. Previously noted uptake at the right lung apex is no longer identified in this region. There are numerous noncalcified solid nodules in the lungs which appear increased in size, the most prominent of which demonstrate new elevated uptake. Examples: A dominant right lower lobe nodule measuring 1.1 cm in diameter on series 3, image 64 demonstrates an SUV max 5.9; a dominant left upper lobe nodule measuring 1.6 x 0.8 cm on series 3, image 61 is noted, SUV max 3.7; a pleural based medial left apical nodule measuring approximately 1.1 x 0.6 cm on series 3, image 37 demonstrates an SUV max 4.1 in a more anteriorly located left apical nodule measuring 8 mm on image 37 of series 3 demonstrates an SUV max 3.1. Heart: A rounded focus of abnormal uptake along the posterior superior aspect of the left atrium is noted without a well-defined lesion, SUV max 6.6 on PET series 4, image 61. Assessment is limited without intravenous contrast. Mediastinal space: No abnormal uptake. Liver: No abnormal uptake. Gallbladder and bile ducts: No abnormal uptake. Pancreas: No abnormal uptake. Spleen: No abnormal uptake. Adrenal glands: No abnormal uptake. Kidneys and ureters: Normal physiologic uptake. Stomach and bowel: No abnormal uptake. There are scattered colonic diverticula. Vasculature: No abnormal uptake. There are diffuse atherosclerotic changes including within the coronary arteries. Lymph nodes: Calcified mediastinal and bilateral hilar lymph nodes are present. Lobulated soft tissue density masses and/or clustered lymph nodes anterior to the right hip joint are noted and are radiotracer avid. The more medially located lesion measures 4.1 x 2.3 cm on series 3, image 133, SUV max 11.4 in the more laterally located lesion measures 7.1 x 3.4 cm on series 3, image 133, SUV max 14.1. Bones/joints: There are radiotracer avid osseous lesions. New left sternal uptake without a well-defined lesion on CT series 3, image 59, SUV max 6.8. A new focus of mid right iliac bone uptake is noted on series 4, image 113 without a well-defined lesion, SUV max 3.8. Linear posteromedial right acetabular uptake is new, SUV max 3.7. Extensive abnormal sclerosis in the right femoral head through visualized proximal shaft is noted with coarsening of the trabecular markings appears increased since the prior PET-CT. Uptake in the greater trochanter extending inferiorly to the proximal femoral shaft is new, SUV max 9.8. Soft tissues: There is benign-appearing uptake in the region of the distal left infraspinatus muscle without evidence of a discrete lesion, SUV max 3.3, likely inflammatory. There is new elevated uptake in the region of the proximal right vastus intermedius muscle which appears asymmetrically enlarged for example on CT series 3, image 138, SUV max 10.3. Mild subcutaneous edema in the medial right thigh is noted. METRICS: Mediastinal blood pool: SUV max 1.9 PET/PET skulltothigh INITIAL [id number] IMPRESSION: 1. Bilateral pulmonary nodules are noted, several of which demonstrate elevated uptake consistent with progressive thoracic metastatic disease compared with the prior PET-CT. 2. New focus of abnormal uptake in the region of the left atrium. No well-defined lesion on the current exam or on the previously contrasted CT chest of 12/29/2022 in this region is noted and this uptake may be artifactual in nature. Attention to this region is recommended on follow-up imaging. 3. New soft tissue density masslike areas along the anterior aspect of the right hip with likely involvement of the proximal vastus intermedius muscle highly concerning for malignancy. 4. Previously noted trabecular coarsening and sclerosis of the proximal right femur appears increased since the prior PET-CT with new elevated uptake in this region concerning for malignancy. This may represent metastasis or malignant degeneration in a region of Paget's disease. 5. New radiotracer avid osseous lesions involving the sternum and right iliac bone concerning for metastases. 6. No evidence of abnormal uptake in the region of previously noted pancreatic mass on the CT of 12/29/2022. 7. Additional nonurgent findings as detailed above. COMMENTS: Patient weight of 75 lb/34 kg was verified with the technologist.
== END 2023-01-14 05:53 | disposition home or self-care (01) ==
LOC: RAD 01-16 05:52
PROVIDERS: PCP Family Medicine; Visit Provider Family Medicine
DX: R91.8 Other nonspecific abnormal finding of lung field (principal)
CPT/HCPCS: 78815; A9552

== ENCOUNTER 2023-02-07 10:42 | Oncology outpatient (recurring) (ONCR) | payer MEDICARE, SELFPAY | END 2023-02-20 23:59 | disposition home or self-care (01) | LOC: ONCMED 10:43 | PROVIDERS: PCP Family Medicine; Visit Provider Internal Medicine Medical Oncology | DX: C21.1 Malignant neoplasm of anal canal (principal); C79.51 Secondary malignant neoplasm of bone; C79.81 Secondary malignant neoplasm of breast; R63.4 Abnormal weight loss; Z68.1 Body mass index [BMI] 19.9 or less, adult; G89.3 Neoplasm related pain (acute) (chronic); Z79.891 Long term (current) use of opiate analgesic; Z79.899 Other long term (current) drug therapy; Z87.891 Personal history of nicotine dependence; Z92.21 Personal history of antineoplastic chemotherapy; Z92.3 Personal history of irradiation | CPT/HCPCS: 99215 ==